=== PATIENT | female | born 1990 | race Caucasian/White ===

== ENCOUNTER 2017-04-12 00:20 | Emergency (ER) | payer MEDICAID ==
[~2017-04-12] VITALS: Ht 144.8 cm; Wt 79.0 kg
[2017-04-12 01:07] LABS: CLARITY URINE CLEAR (CLEAR); COLOR URINE YELLOW (YELLOW); KETONES URINE NEGATIVE (NEGATIVE); LEUKOCYTE ESTERASE URINE NEGATIVE (NEGATIVE); NITRITE URINE NEGATIVE (NEGATIVE); OCCULT BLOOD URINE NEGATIVE (NEGATIVE); PH URINE 6.5 (4.5-8.0); PROTEIN URINE NEGATIVE (NEGATIVE); SPECIFIC GRAVITY URINE 1.022 (1.005-1.030)
[2017-04-12] MEDS ORDERED: KETOROLAC 30MG/ML VIAL IV STA (03:32)
[2017-04-12] MEDS ORDERED: HYDROCODONE/ACETAMINOPHEN 5/325MG TABLET PO STA (03:32)
[2017-04-12] MEDS ORDERED: FAMOTIDINE 20MG/2ML VIAL IV STA (03:32)
[2017-04-12] MEDS ORDERED: SODIUM CHLORIDE 0.9% 1,000 ML IV ONE (03:32)
[2017-04-12] MEDS ORDERED: MAGNESIUM/ALUMINUM HYDROXIDE/SIMETHICONE 30ML UDC PO STA ×2 (03:32)
[2017-04-12] MEDS ORDERED: ONDANSETRON HCL 4MG/2ML VIAL IV STA (03:32)
[2017-04-12 05:09] LABS: CARBON DIOXIDE 28 mEq/L (21-32); CHLORIDE 107 mEq/L (98-107)
[2017-04-12 05:10] LABS: PROTHROMBIN TIME 10.7 sec (9.4-11.6)
[2017-04-12 05:23] LABS: BASOPHILS % 0.5 % (0.0-2.0); EOSINOPHILS % 0.3 % (0.0-5.0); HEMATOCRIT. 42.9 % (36.0-48.0); HEMOGLOBIN. 14.4 g/dL (12.0-16.0); LYMPHOCYTES % 17.4 % (20.0-50.0); MEAN CORPUSCULAR HEMOGLOBIN 29.5 pg (28.0-32.0); MEAN CORPUSCULAR VOLUME 88.2 fL (81.0-99.0); MEAN PLATELET VOLUME 9.2 fl (7.4-10.4); MONOCYTES % 4.3 % (2.0-8.0); NEUTROPHILS % 77.5 % (40.0-76.0); PLATELET 346 x1000/uL (130-400); RED BLOOD CELL COUNT 4.87 mill/uL (4.2-5.4); RED CELL DISTRIBUTION WIDTH 12.7 % (11.6-14.6)
[2017-04-12] MEDS ORDERED: METOCLOPRAMIDE HCL 10MG/2ML VIAL IV SCH (05:30)
[2017-04-12 08:15] VITALS: BP 119/57
== END 2017-04-12 08:33 | disposition home or self-care (01) ==
LOC: ER 01:15
DX: R10.13 Epigastric pain (principal); R10.11 Right upper quadrant pain; R11.2 Nausea with vomiting, unspecified; F17.200 Nicotine dependence, unspecified, uncomplicated; F12.10 Cannabis abuse, uncomplicated; Z98.890 Other specified postprocedural states; Z90.49 Acquired absence of other specified parts of digestive tract
CPT/HCPCS: 36415; 74176; 76705; 80053; 81003; 81025; 83690; 85025; 85610; 96372; 96374; 96375; 99285; J1885; J2405; J2765; J3490; J7030

== ENCOUNTER 2017-04-13 21:03 | Emergency (ER) | payer MEDICAID ==
[~2017-04-13] VITALS: Ht 144.8 cm; Wt 82.0 kg
[2017-04-13 21:04] VITALS: BP 106/68
== END 2017-04-14 03:11 | disposition left against medical advice (07) ==
LOC: ER 21:03
DX: R10.9 Unspecified abdominal pain (principal); Z53.21 Procedure and treatment not carried out due to patient leaving prior to being seen by health care provider

== ENCOUNTER 2020-09-07 15:26 | Emergency (ER) | payer MEDICAID ==
[~2020-09-07] VITALS: Ht 149.9 cm; Wt 77.0 kg
[2020-09-07] MEDS ORDERED: IPRATROPIUM BROMIDE (0.02%) 0.5MG/2.5ML NEB HHN STA (15:31)
[2020-09-07] MEDS ORDERED: ALBUTEROL (0.083%) 2.5MG/3ML NEB HHN STA (15:31)
[2020-09-07] MEDS ORDERED: MAGNESIUM 2 G PREMIX 50 ML IV STA (15:42)
[2020-09-07] MEDS ORDERED: METHYLPREDNISOLONE SOD SUCC 125 MG/2 ML VIAL IV STA (15:42)
[2020-09-07] MEDS ORDERED: SODIUM CHLORIDE 0.9% 1,000 ML IV ONE (15:45)
[2020-09-07 16:38] LABS: BASOPHILS % 0.6 % (0.0-2.0); EOSINOPHILS % 0.8 % (0.0-5.0); HEMATOCRIT. 42.8 % (36.0-48.0); HEMOGLOBIN. 15.1 g/dL (12.0-16.0); LYMPHOCYTES % 8.9 % (20.0-50.0); MEAN CORPUSCULAR HEMOGLOBIN 30.8 pg (28.0-32.0); MEAN CORPUSCULAR VOLUME 87.6 fL (81.0-99.0); MEAN PLATELET VOLUME 8.9 fl (7.4-10.4); NEUTROPHILS % 84.7 % (40.0-76.0); PLATELET 310 x1000/uL (130-400); RED BLOOD CELL COUNT 4.89 mill/uL (4.2-5.4); RED CELL DISTRIBUTION WIDTH 12.4 % (11.6-14.6)
[2020-09-07 16:43] LABS: CHLORIDE 107 mEq/L (98-107)
[2020-09-07 16:48] LABS: HCG SCREEN NEGATIVE
[2020-09-07] MEDS ORDERED: ACETAMINOPHEN 325MG TABLET PO ONE (17:30)
[2020-09-07] MEDS ORDERED: AZITHROMYCIN 500 MG TABLET PO ONE (18:15)
[2020-09-07] MEDS ORDERED: IPRATROPIUM/ALBUTEROL 0.5-3(2.5)MG/3ML NEB HHN ONE (19:00)
[2020-09-07] MEDS ORDERED: P20 MT (21:25)
[2020-09-07] MEDS ORDERED: ALBU2.5V13 NEB (21:25)
[2020-09-07] MEDS ORDERED: AZIT250T12 MT (21:25)
[2020-09-07 21:40] VITALS: BP 113/74
== END 2020-09-07 21:55 | disposition home or self-care (01) ==
LOC: ER 15:26
DX: J45.901 Unspecified asthma with (acute) exacerbation (principal); Z98.890 Other specified postprocedural states
CPT/HCPCS: 36415; 71045; 80053; 84703; 85025; 93005; 94640; 96365; 96375; 99285; J2930; J3475; J7030; Z7610